=== PATIENT | female | born 1995 | race Caucasian/White ===

== ENCOUNTER 2016-10-12 17:44 | Emergency (ER) | payer OTHER ==
--- NOTE | 2016-10-12 19:32 | ERRECORD ---
[facility] EMERGENCY RECORD PAST MEDICAL HISTORY (17:54 JSMI) MEDICAL HISTORY: No past medical history, Flu vaccine up to date, Tetanus immunization up to date, No past medical history, Flu vaccine up to date, Tetanus immunization up to date, Pneumococcal vaccine not up to date, No past medical history,. FEMALE SURGICAL HISTORY: Patient has no surgical history,. PSYCHIATRIC HISTORY: Psychiatric history includes, depression,. SOCIAL HISTORY: Patient denies alcohol use, Patient denies drug use, Patient has no smoking history, Lives at home, with family,. KNOWN ALLERGIES cefprozil (Unconfirmed): Reaction: Rash CefZIL CURRENT MEDICATIONS (17:51 JSMI) None VITAL SIGNS (17:50 JSMI) VITAL SIGNS: BP: 149/92, Pulse: 54, Resp: 16, Temp: 98.4 (Oral), Pain: 0, O2 sat: 98 on Room Air, Time: 10/12/2016 17:50. PROBLEM LIST No recorded problems DIAGNOSIS (19:16 JPIP) FINAL: PRIMARY: post bleeding. PRESCRIPTION No recorded prescriptions DISPOSITION PATIENT: Disposition Type: Discharge, Disposition: *Discharge Home, Condition: Good. (19:16 JPIP) Patient left the department. (19:21 YANELI) Walls: ALYCE=DO Avitia Joseph JSYAMILETH=YOSSI Reyes, Seda GROVES=YOSSI Canas, Gustavo &a-1R&a+25V*p+0X*k5881G*c202B*c15G*c2P*p-0X&a-25V&a+1R Name: Valarie Nelson : 1995 F21 MedRec: [id number] AcctNum: [id number] Prepared: SatOct 12, 2016 19:28 by Interface Page 1 of 1 pMD MTDD
--- NOTE | 2016-10-12 19:41 | PICIS ---
[facility] EMERGENCY RECORD TRIAGE (SatOct 12, 2016 17:51 JSMI) PATIENT: NAME: Valarie Nelson, AGE: 21, GENDER: female, : Sat1995, TIME OF GREET: SatOct 12, 2016 17:45, PREFERRED LANGUAGE: Haitian, ETHNICITY: or , ECODE BILLING MAP: [facility], SSN: [id number], Zip Code: [address], KG WEIGHT: 95.25, PHONE: , , , PERSON ID: [id number], PAYMENT: [facility] Medicaid, PCP: Yadira OWEN ROLAND. (SatOct 12, 2016 17:51 JSMI) COMPLAINT: passed blood clot 3 days post . (SatOct 12, 2016 17:51 JSMI) ADMISSION: URGENCY: 5 [employer], ADMISSION SOURCE: Home, TRANSPORT: CAR, BED: TRIAGE. (SatOct 12, 2016 17:51 JSMI) ASSESSMENT: Assessment: PT PRESENTS AWAKE ALERT AND ORIENTED. SKIN PINK WARM AND DRY., Symptoms began 10/12/2016 1300. (17:54 JSMI) SIRS SCORING: Heart Rate 55-109 (0), Temp range 96.8-101.1 (0), respiratory rate 12-24 (0), Mental Status altered: no (0), Infection or Suspected Infection: No. (17:54 JSMI) LMP: , P: 2. (17:54 JSMI) PROVIDERS: TRIAGE NURSE: Seda Reyes RN. (SatOct 12, 2016 17:51 JSMI) VITAL SIGNS: BP 149/92, Pulse 54, Resp 16, Temp 98.4, (Oral), Pain 0, O2 Sat 98, on Room Air, Time 10/12/2016 17:50. (17:50 JSMI) PREVIOUS VISIT ALLERGIES: CefZIL. (SatOct 12, 2016 17:51 JSMI) CefZIL. (17:54 JSMI) KNOWN ALLERGIES cefprozil (Unconfirmed): Reaction: Rash CefZIL CURRENT MEDICATIONS (17:51 JSMI) None VITAL SIGNS (17:50 JSMI) VITAL SIGNS: BP: 149/92, Pulse: 54, Resp: 16, Temp: 98.4 (Oral), Pain: 0, O2 sat: 98 on Room Air, Time: 10/12/2016 17:50. NURSING ASSESSMENT: GENITOURINARY (17:55 JSMI) CONSTITUTIONAL: Complex assessment performed, Patient arrives ambulatory, Gait steady, History obtained from patient, Patient appears comfortable, Patient cooperative, Patient alert, Oriented to person, place and time, Skin warm, Skin dry, Skin normal in color, Mucous membranes pink, Patient complains of passed blood clot (golf ball sized) 3 days post , states other than clot she is using 3 pads per day without saturating any of them. GENITOURINARY FEMALE: no associated urinary complaints. ABDOMEN: Abdomen assessment findings include abdomen symmetrical, Abdomen soft, non-tender. NURSING PROCEDURE: DISCHARGE NOTE (19:19 SIJO) DISCHARGE: Patient discharged to home, ambulating without &a-1R&a+25V*p+0X*f3097P*c202B*c15G*c2P*p-0X&a-25V&a+1R Name: Valarie Nelson Danielle : 1995 F21 MedRec: [id number] AcctNum: [id number] Prepared: SatOct 12, 2016 19:33 by Interface Page 1 of 3 pMD [facility] EMERGENCY RECORD assistance, Patient treated and evaluated by physician, Notes: Discharge instructions reviewed and signed with good understanding. BELONGINGS: Belongings remain with patient, Valuables remain with patient. NURSING PROCEDURE: PELVIC EXAM (19:11 SIJO) PELVIC EXAM: Pelvic exam indicated for vaginal bleeding, Pelvic exam indicated for pelvic pain, Pelvic exam performed by Dr. ruvalcaba, Pelvic exam assisted by glenroy rn, Exam findings include bleeding, moderate amount, with clots, no tissue, No interventions needed, Notes: larry swab used. FOLLOW-UP: Notes: tolerated well. ORDER DETAILS Order Name: PROCEDURE SET-UP, Status: Done, Time: 18:46 10/12/2016, User: Gist, - Ordered for: DO Ruvalcaba Joseph, - Entered by: DO Ruvalcaba Joseph - SatOct 12, 2016 18:32, - Quantity: 1. PAST MEDICAL HISTORY (17:54 JSMI) MEDICAL HISTORY: No past medical history, Flu vaccine up to date, Tetanus immunization up to date, No past medical history, Flu vaccine up to date, Tetanus immunization up to date, Pneumococcal vaccine not up to date, No past medical history,. FEMALE SURGICAL HISTORY: Patient has no surgical history,. PSYCHIATRIC HISTORY: Psychiatric history includes, depression,. SOCIAL HISTORY: Patient denies alcohol use, Patient denies drug use, Patient has no smoking history, Lives at home, with family,. EVENTS TRANSFER: Triage to Emergency Triage. (SatOct 12, 2016 17:51 JSMI) Emergency Triage to Emergency Room -03. (17:51 JSMI) Removed from Emergency Emergency Room -03. (19:21 SIJO) O2SAT INTERPRETATION (17:55 JPIP) O2SAT: Single pulse oximetry, Oxygen saturation 98%, on room air, Oxygen saturation interpretation: Normal, No intervention required. PROBLEM LIST No recorded problems DIAGNOSIS (19:16 JPIP) FINAL: PRIMARY: post bleeding. &a-1R&a+25V*p+0X*y3755H*c202B*c15G*c2P*p-0X&a-25V&a+1R Name: Valarie Nelson Danielle : 1995 F21 MedRec: [id number] AcctNum: [id number] Prepared: SatOct 12, 2016 19:33 by Interface Page 2 of 3 pMD [facility] EMERGENCY RECORD DISPOSITION PATIENT: Disposition Type: Discharge, Disposition: *Discharge Home, Condition: Good. (19:16 JPIP) Patient left the department. (19:21 SIJO) INSTRUCTION (19:11 JPIP) DISCHARGE: WOUND CHECK POSTOP BLEEDING. FOLLOWUP: Yadira OWEN, [facility], [address] [place] [address], [place] [phone], . SPECIAL: Follow up with Primary Care Physician within 72 hours Return to the Emergency Department for increased symptoms problems or concerns. PRESCRIPTION No recorded prescriptions IMAGING (19:21 SIJO) *DISCHARGE INSTRUCTIONS RECEIPT: Image captured from scanner. *SUPPLY CHARGE SHEET: Image captured from scanner. Walls: ALYCE=DO Ruvalcaba Joseph JSYAMILETH=YOSSI Reyes, Seda SIKAYLA=YOSSI Canas, Gustavo &a-1R&a+25V*p+0X*z6336H*c202B*c15G*c2P*p-0X&a-25V&a+1R Name: OmarValarie Danielle : 1995 F21 MedRec: [id number] AcctNum: [id number] Prepared: SatOct 12, 2016 19:33 by Interface Page 3 of 3 pMD MTDD
== END 2016-10-12 19:18 | disposition home or self-care (01) ==
LOC: BURERS 17:44
DX: O72.1 Other immediate postpartum hemorrhage (principal)
CPT/HCPCS: 99283